=== PATIENT | male | born 1940 | race Two or more races ===

== ENCOUNTER 2018-03-16 07:00 | Day surgery (SDC) | payer MEDICARE, BC ==
[2018-03-16] MEDS ORDERED: ONDANSETRON HCL INJ/PF 4 MG/2 ML SDV ONE (07:30)
[2018-03-16] MEDS ORDERED: NALOXONE HCL INJ/PF 0.4 MG/1 ML SDV ONE (07:31)
[2018-03-16] MEDS ORDERED: FLUMAZENIL INJ 0.5 MG/5 ML VIAL ONE (07:31)
[2018-03-16] MEDS ORDERED: EPINEPHRINE INJ 1 MG/10 ML DISP.SYRIN ONE (07:31)
[2018-03-16] MEDS ORDERED: GLUCAGON,HUMAN RECOMB 1 MG INJ ONE (07:31)
[2018-03-16] MEDS: MIDAZOLAM 2 MG/2 ML INJ ONE ×2 (08:22→08:28)
[2018-03-16] MEDS: FENTANYL CITRATE INJ/PF 100 MCG/2 ML AMPUL ONE ×2 (08:24→08:32)
--- NOTE | 2018-03-16 09:05 | Discharge Summary ---
Discharge Summary (SDC) - Discharge Final Diagnosis: Personal history of colon carcinoma status post right hemicolectomy; sigmoid diverticulosis Date of Surgery: 03/16/18 Discharge Date: 03/16/18 Condition: Good Treatment or Instructions: [address] [id number] POST ENDOSCOPY DISCHARGE INSTRUCTIONS 1. Diet: Start clear liquids that a regular diet as tolerated. 2. Resume all preoperative medications. All oral anticoagulants and aspirins can be resumed 24 hours after procedure. 3. If a polypectomy was performed some bleeding per rectum may occur. This should stop within 3 days. If not, please contact the office. 4. If you had a colonoscopy you may experience some bloating and delayed return of normal bowel function for several days, your regular bowel movement pattern should resume within a week. 5. Please contact [facility] at to make an appointment with Dr. Nunez for 1 to 3 weeks following procedure. 6. If you have any questions or concerns regarding your care,treatment plan or follow up, please contact our office. 7. Per clinical guidelines we recommend you undergo a repeat colonoscopy in 8 years. Referrals: FELISHA PENNY MD [Primary Care Provider] - Discharge Diet: As Tolerated Discharge Activity: Activity As Tolerated Home Care Assistance: None Needed Report the Following to Your Physician Immediately: Shortness of Breath, Increase in Pain, Fever over 101 Degrees
--- NOTE | 2018-03-16 09:07 | Operative Report ---
Operative Report DATE OF SURGERY: 03/16/18 PREOPERATIVE DIAGNOSIS: 1. Sigmoid diverticulosis. 2. Status post right hemicolectomy for colon carcinoma POSTOPERATIVE DIAGNOSIS: Same; normal: OPERATION: Total colonoscopy to ileocolonic anastomosis with photodocumentation SURGEON: KELLI BERNAL ANESTHESIA: LMAC TISSUE REMOVED OR ALTERED: None COMPLICATIONS: None ESTIMATED BLOOD LOSS: None INTRAOPERATIVE FINDINGS: See below PROCEDURE: Obtaining informed consent the patient was taken from the preoperative holding area to the main endoscopy suite where monitoring devices were attached to the patient. Plan and surgical timeout were conducted The patient was placed in the left lateral decubitus position with knees to chest. A perianal examination was performed. There was no visible or palpable anorectal pathology. Sphincter tone was felt to be normal. The flexible adult colonoscope was advanced through the anal rectal canal, all the way to the ileocecal anastomosis. The terminal ileum was cannulated for approximately 15 cm. There was no evidence of recurrent tumor. The anastomosis was sequential, and widely patent. This was an excellent study on a reasonably well-prepped bowel. Liquid green stool and some particulate aspirated easily. The colonoscope was withdrawn slowly and methodically checked and the mucosa carefully. There were dense diverticular disease of the sigmoid colon with some tortuosity but no stricture. No evidence of tumor bleeding or polyp. The scope was slowly withdrawn through the anal rectal canal. Complete visualization of the rectum was achieved with photodocumentation. The scope was withdrawn to the patient's anus. The patient tolerated the procedure well and was taken to the recovery area in stable condition. Per surveillance guidelines, patient sooner if symptoms develop
[2018-03-16 09:59] VITALS: BP 122/77
== END 2018-03-16 09:50 | disposition home or self-care (01) ==
LOC: END 07:00
PROVIDERS: ATTEND Surgery
DX: K57.30 Diverticulosis of large intestine without perforation or abscess without bleeding (principal); Z85.038 Personal history of other malignant neoplasm of large intestine; Z90.49 Acquired absence of other specified parts of digestive tract; I10 Essential (primary) hypertension; E78.00 Pure hypercholesterolemia, unspecified; Z79.899 Other long term (current) drug therapy; Z01.818 Encounter for other preprocedural examination
CPT/HCPCS: 45378; J2250; J3010; J0171; J1610; J2310; J2405; J3490